=== PATIENT | male | born 1985 | race Caucasian/White ===

== ENCOUNTER 2025-06-14 12:29 | Emergency (ER) | payer BC, SELFPAY ==
[2025-06-14] VITALS (16 sets, daily range): BP systolic 139–178; BP diastolic 80–92; PULSE 78–118; RESP 9–30; TEMP 37.2; O2SAT 92–99; BMI 36.5
--- NOTE | 2025-06-14 12:47 | DI.RAD.S_ITS ---
PROCEDURE: XR CHEST 1V INDICATIONS: altered mental status TECHNIQUE: One view of the chest was acquired. COMPARISON: None. FINDINGS: Surgical changes and devices: None. Lungs and pleura: Lungs are clear. No pleural effusions or pneumothorax. Mediastinum: Mediastinal contours appear normal. Heart size is normal. Bones and chest wall: No suspicious bony lesions. Overlying soft tissues appear unremarkable. IMPRESSION: No acute cardiopulmonary abnormality is seen. Dictated by: Russel Roberts M.D. on 06/14/2025 at 14:04 Approved by: Russel Roberts M.D. on 06/14/2025 at 14:04
--- NOTE | 2025-06-14 12:47 | EKG_ITS ---
[address] [address] Test Date: 2025-06-14 Pat Name: Db Veras Department: Room: Gender: Male Sustainability Analyst: DAHLIA : 1985 Requested By: Order Number: [id number] Reading MD: Dinesh Becerra Measurements Intervals [place] Rate: 115 P: 56 WI: 174 QRS: 70 QRSD: 88 T: 47 QT: 332 QTc: 459 Interpretive Statements Sinus tachycardia Possible Left atrial enlargement Anteroseptal infarct , age undetermined T wave abnormality, consider inferior ischemia Electronically Signed On 06-17-2025 16:46:07 PDT by Dinesh Becerra
[2025-06-14 13:07] LABS: Add Manual Diff / Slide Review NO; Hematocrit 58.9 % (41-53); Hemoglobin 19.3 g/dL (13.5-17.5); Lymphocytes Absolute Auto 4900 /uL (1100-4500); Mean Corpuscular HGB Conc 32.8 % (30-36); Mean Corpuscular Hemoglobin 30.1 PG (26-34); Mean Corpuscular Volume 91.7 fL (80-100); Platelet Count 275 X10^3/uL (150-400)
--- NOTE | 2025-06-14 13:12 | ED.SEIZURE ---
HPI - Seizure General Chief Complaint: Seizure Stated Complaint: possible seizure Source: patient and EMS Mode of arrival: EMS History of Present Illness HPI Narrative: 39-year-old gentleman presents via EMS possible evaluation of seizure. He stated that he was at work and he was not feeling right and wanted to go home and noticed his right arm and leg was not working correctly and it felt like it was out of his body he described. He knew what he wanted to do but is not moving his R side correctly. Other than what is stated 14 point review of system is negative. Related Data Allergies Allergy/AdvReac Type Severity Reaction Status Date / Time No Known Drug Allergies Allergy Verified 06/14/25 12:34 Review of Systems Review of Systems ROS Unobtainable: All systems reviewed & are unremarkable except as noted in HPI and below Patient History Smoking Status: Former smoker tobacco type: smokeless tobacco Exam Narrative Exam Narrative: GENERAL: [39] year old patient appears stated age. Well-developed patient, in mild distress. HEAD: Atraumatic. Normocephalic. EYES: Pupils equal round and reactive. Extraocular motions intact. No scleral icterus. No injection or drainage. ENT: Nose without bleeding, purulent drainage. Throat without erythema, tonsillar hypertrophy or exudate. Airway patent. NECK: Trachea midline. Non tender CARDIOVASCULAR: Regular rate and rhythm without murmurs, gallops, or rubs. RESPIRATORY: Clear to auscultation. Breath sounds equal bilaterally. No wheezes, rales, or rhonchi. GASTROINTESTINAL: Abdomen soft, non-tender, nondistended. EXTREMITIES: No edema or joint tenderness. BACK: Nontender without deformity or crepitance. No flank tenderness. NEURO: AOx3. SKIN: No rash or erythema of visible areas Initial Vital Signs Initial Vital Signs: Vital Signs Temperature 98.9 F 06/14/25 12:33 Pulse Rate 118 H 06/14/25 12:33 Respiratory Rate 16 06/14/25 12:33 Blood Pressure 160/80 H 06/14/25 12:33 Pulse Oximetry 96 06/14/25 12:33 Oxygen Delivery Method Room Air 06/14/25 12:33 Course Orders Ordered: ED Orders 06/14/25 12:15 Complete Blood Count AUTO DIFF Stat Comprehensive Metabolic Panel Stat Ethanol (ETOH) Stat Lactate (Lactic Acid) Stat Procalcitonin Stat Troponin & CK Cardiac Panel Stat 06/14/25 12:47 XR chest 1V Stat Urine Drug Screen, Rapid Stat EKG-12 Lead Stat Vital Signs Vital signs: Vital Signs - 8 hr 06/14/25 12:33 Temperature 98.9 F Pulse Rate 118 H Respiratory Rate 16 Blood Pressure 160/80 H Pulse Oximetry 96 Oxygen Delivery Method Room Air MDM - Seizure Lab Data 06/14/25 12:15 06/14/25 12:15 Labs: Lab Results 06/14/25 06/14/25 Range/Units 12:15 12:41 WBC 15.6 H (4.5-11.0) X10^3/uL RBC 6.42 H (4.5-5.9) X10^6/uL Hgb 19.3 H (13.5-17.5) g/dL Hct 58.9 H (41-53) % MCV 91.7 (80-100) fL MCH 30.1 (26-34) PG MCHC 32.8 (30-36) % RDW 15.2 H (11.6-14.8) % Plt Count 275 (150-400) X10^3/uL Neut % (Auto) 58.8 (50-75) % Lymph % (Auto) 31.3 (25-40) % [place] % (Auto) 5.9 (3-14) % Eos % (Auto) 2.7 (2-4) % Baso % (Auto) 1.3 (0-2) % Neut # (Auto) 9200 H (0641-1895) /uL Lymph # (Auto) 4900 H (9847-2234) /uL [place] # (Auto) 900 (0-900) /uL Eos # (Auto) 400 (0-450) /uL Baso # (Auto) 200 H (0-100) /uL Sodium 141 (137-145) mmol/L Potassium 3.6 (3.4-5.1) mmol/L Chloride 102 (98-107) mmol/L Carbon Dioxide 6 L* (22-32) mmol/L BUN 19 (9-20) mg/dL Creatinine 1.63 H (0.66-1.25) mg/dL Estimated GFR 54 L (>60) mL/min BUN/Creatinine Ratio 11.7 (6-22) Glucose 149 H (70-99) mg/dL POC Whole Bld Glucose 148 H (70-99) mg/dL Lactate 16.6 H* (0.7-2.1) mmol/L Calcium 9.2 (8.4-10.2) mg/dL Total Bilirubin 1.1 (0.2-1.3) mg/dL AST 44 (17-59) IU/L ALT 43 (<50) IU/L Alkaline Phosphatase 75 (38-126) U/L Total Creatine Kinase 386 H (55-170) U/L Troponin I < 0.012 (0.01-0.034) ng/mL Total Protein 8.1 (6.3-8.2) g/dL Albumin 5.0 (3.5-5.0) g/dL Globulin 3.1 (1.7-4.1) g/dL Albumin/Globulin Ratio 1.6 (1.0-2.8) Procalcitonin 0.074 (<0.5) ng/mL Ethyl Alcohol < 10 (<10) mg/dL Point of Care Testing Glucose POC [address] scan - head: Radiologist's Impression: [place] [address] CT Scan Report Signed Patient: Db Veras MR#: [id number] : 1985 Acct:[id number] Age/Sex: 39 / M Date of Service: 06/14/25 Loc: ED Accession Number: [id number] Procedure: CT head/brain wo con Ordering Provider: Hieu Portillo D.O. PROCEDURE: CT HEAD/BRAIN WO CON INDICATIONS: ams TECHNIQUE: Noncontrast 4.5 mm thick angled axial sections acquired from the foramen magnum to the vertex, with coronal and sagittal reformats. For radiation dose reduction, the following was used: automated exposure control, adjustment of mA and/or kV according to patient size. COMPARISON: None. FINDINGS: Image quality: Diagnostic. CSF spaces: Basal cisterns are patent. No extra-axial fluid collections. Ventricles are normal in size and shape. Brain: No midline shift. There is acute intracranial hemorrhage present in the clark-white junction region. It is present centered in the clark-white junction region of the left posterior frontal parietal region. It measures approximately 2.4 x 1.2 x 3.7 cm. Skull and face: Calvarium and visualized facial bones are intact, without suspicious lesions. Sinuses: Visualized sinuses and mastoids are clear. IMPRESSION: Left-sided parenchymal hemorrhage as described above. Comment: Findings were discussed with Dr. Portillo on 06/14/2025 at 1418 hours Chest x-ray: Radiologist's Impression: [address] [address] XRay Report Signed Patient: Db Veras MR#: [id number] : 1985 Acct:[id number] Age/Sex: 39 / M Date of Service: 06/14/25 Loc: ED Accession Number: [id number] Procedure: XR chest 1V Ordering Provider: Hieu Portillo D.O. PROCEDURE: XR CHEST 1V INDICATIONS: altered mental status TECHNIQUE: One view of the chest was acquired. COMPARISON: None. FINDINGS: Surgical changes and devices: None. Lungs and pleura: Lungs are clear. No pleural effusions or pneumothorax. Mediastinum: Mediastinal contours appear normal. Heart size is normal. Bones and chest wall: No suspicious bony lesions. Overlying soft tissues appear unremarkable. IMPRESSION: No acute cardiopulmonary abnormality is seen. ECG Data Interpretation: Sinus Tach HR 115 CO 174 QRS [address]-t wave change No previous EKG to compare MDM Narrative Medical decision making narrative: All lab work, vital signs, nurse triage note, medication list, previous ER visits, and all imaging study reviewed. WBC 15.6, hg 19.3, pt 275, cO2 6, Lactic acid 16.6, glu 1499, cr 1.63, ck 386, trop <0.012. CT head and ct angio head and neck shows Left-sided parenchymal hemorrhage. CXR shows no acute process. Case discussed with Dr. Ruiz who has accepted the patient for admission at [facility] and to keep blood pressure below 160/105. Patient given labetalol 10 mg IV x1. Differential diagnosis CVA, intermittent parenchymal hemorrhage, TIA, seizure, substance abuse. Discharge Plan Departure Patient Disposition: [facility] Clinical Impression: Acute spont intraparenchymal hemorrhage assoc w/ hypertension
[2025-06-14 13:14] LABS: Alanine Aminotransferase 43 IU/L (<50); Albumin 5.0 g/dL (3.5-5.0); Albumin Globulin Ratio 1.6 (1.0-2.8); Alkaline Phosphatase 75 U/L (38-126); Blood Urea Nitrogen 19 mg/dL (9-20); Calcium 9.2 mg/dL (8.4-10.2); Chloride 102 mmol/L (98-107); Creatine Kinase 386 U/L (55-170); Estimated Glomerular Filt Rate 54 mL/min (>60); Ethanol (ETOH) < 10 mg/dL (<10); Globulin 3.1 g/dL (1.7-4.1); Glucose 149 mg/dL (70-99); HEMOLYSIS 19 (0-50); Potassium 3.6 mmol/L (3.4-5.1); Sodium 141 mmol/L (137-145); Total Protein 8.1 g/dL (6.3-8.2)
[2025-06-14 13:16] LABS: Carbon Dioxide 6 mmol/L (22-32)
[2025-06-14 13:23] LABS: Lactate (Lactic Acid) 16.6 mmol/L (0.7-2.1)
[2025-06-14 13:26] LABS: Troponin I < 0.012 ng/mL (0.01-0.034)
[2025-06-14 13:31] LABS: Procalcitonin 0.074 ng/mL (<0.5)
--- NOTE | 2025-06-14 13:43 | DI.CT.S_ITS ---
PROCEDURE: CT HEAD/BRAIN WO CON INDICATIONS: ams TECHNIQUE: Noncontrast 4.5 mm thick angled axial sections acquired from the foramen magnum to the vertex, with coronal and sagittal reformats. For radiation dose reduction, the following was used: automated exposure control, adjustment of mA and/or kV according to patient size. COMPARISON: None. FINDINGS: Image quality: Diagnostic. CSF spaces: Basal cisterns are patent. No extra-axial fluid collections. Ventricles are normal in size and shape. Brain: No midline shift. There is acute intracranial hemorrhage present in the clark-white junction region. It is present centered in the clark-white junction region of the left posterior frontal parietal region. It measures approximately 2.4 x 1.2 x 3.7 cm. Skull and face: Calvarium and visualized facial bones are intact, without suspicious lesions. Sinuses: Visualized sinuses and mastoids are clear. IMPRESSION: Left-sided parenchymal hemorrhage as described above. Comment: Findings were discussed with Dr. Portillo on 06/14/2025 at 1418 hours Dictated by: Russel Roberts M.D. on 06/14/2025 at 14:18 Approved by: Russel Roberts M.D. on 06/14/2025 at 14:21
--- NOTE | 2025-06-14 13:43 | DI.CT.S_ITS ---
PROCEDURE: CT ANGIO HEAD AND NECK INDICATIONS: ams TECHNIQUE: After the administration of intravenous contrast, 1 mm thick sections acquired from the aortic arch through the [place] of [place]. 3-dimensional szcacym-pszkypkga-wclxmkdhyd (MIP) and/or volume rendering reformats were acquired of the central intracranial vasculature and neck separately. For radiation dose reduction, the following was used: automated exposure control, adjustment of mA and/or kV according to patient size. COMPARISON: [facility], CT, CT HEAD/BRAIN WO CON, 06/14/2025, 14:05. FINDINGS: Image quality: Diagnostic. Cerebral CT Angiogram: Internal carotid arteries: No acute findings. Intracranial ICA are patent with no significant stenosis. No occlusion. No aneurysm. Anterior cerebral arteries: Unremarkable. No significant stenosis. No occlusion. No aneurysm. Middle cerebral arteries: Unremarkable. No significant stenosis. No occlusion. No aneurysm. Posterior cerebral arteries: Unremarkable. No significant stenosis. No occlusion. No aneurysm. Basilar artery: Unremarkable. No significant stenosis. No occlusion. No aneurysm. Vertebral arteries: Unremarkable as visualized. Dural venous sinuses: Unremarkable given phase of enhancement. Other: Posterior left frontal parietal hemorrhage centered in the clark-white junction region. Neck CT Angiogram: Internal carotid arteries: Unremarkable. No significant stenosis. No dissection or occlusion. Common carotid arteries: Unremarkable. No significant stenosis. No dissection or occlusion. External carotid arteries: Unremarkable. No occlusion. Vertebral arteries: Unremarkable. No significant stenosis. No dissection or occlusion. Aortic Arch and Mediastinum: Partially visualized aortic arch unremarkable without evidence of aneurysm. Origins of the great vessels unremarkable. Other: Arterial phase soft tissues of the neck and chest are unremarkable. IMPRESSION: Left-sided intraparenchymal hemorrhage No significant intracranial arterial abnormality is seen. No significant abnormality is seen within the arteries of the neck. Any quantitative measurements of stenosis were performed using NASCET criteria. Dictated by: Russel Roebrts M.D. on 06/14/2025 at 14:21 Approved by: Russel Roberts M.D. on 06/14/2025 at 14:23
[2025-06-14] MEDS: LACTATED RINGERS 1,000 ML 1000 ML IV ×2 (13:54→13:58)
[2025-06-14 13:55] LABS: Macrocytosis 1+
[2025-06-14 14:26] LABS: Reflexed Lactate in 2 Hours Y
[2025-06-14] MEDS: LABETALOL 20 MG/4 ML SYRINGE 10 MG IV (14:47)
[2025-06-14 15:09] LABS: UR Morphine/Opiate cutoff 300 Negative (Negative); Ur Specific Gravity Normal (Normal); Urine MDMA Negative (Negative); Urine Methamphetamines Negative (Negative); Urine Tetrahydrocannabinol Negative (Negative); Urine Tricyclic Antidepressant Negative (Negative)
[2025-06-14 15:31] LABS: Lactate 2HR (Lactic Acid Rflx) 0.9 mmol/L (0.7-2.1)
--- NOTE | 2025-06-14 15:49 | PC.NURSE ---
SHIPPING CHECKER Note: Patient accepted at ED by Dr. Ruiz. [facility] ALS unit ETA [address] Portillo approved flight for faster arrival at ED. Airlift called, ETA to [place] 1615. Called transfer center and advised of ETA.
== END 2025-06-14 17:08 | disposition short-term general hospital (02) ==
PROVIDERS: Emergency Provider Family Medicine
DX: I61.9 Nontraumatic intracerebral hemorrhage, unspecified (principal); I10 Essential (primary) hypertension
CPT/HCPCS: 36415; 70450; 70496; 70498; 71045; 80053; 80305; 80320; 82550; 82962; 83605; 84145; 84484; 85025; 87040; 93005; 96361; 96374; 99284; Q9967